=== PATIENT | female | born 1985 | race African-American/Black ===

== ENCOUNTER 2019-12-24 14:49 | Emergency (ER) | payer BC, MEDICAID, OTHER ==
--- NOTE | 2019-12-24 15:12 | ER Document Report ---
ED Medical Screen (RME) - General Chief Complaint: Accidental Overdose Stated Complaint: TOOK TOO MUCH INSULIN/REACTION Time Seen by Provider: 12/24/19 15:00 Primary Care Provider: HARISH THAPA [Primary Care Provider] - Follow up as needed - [facility] Notes: 12/24/19 15:09 34-year-old female who is a type 2 insulin-dependent diabetic as well as a history of hypertension presents emergency room for evaluation after she accidentally gave herself 9 units of long-acting insulin and started giving herself 45 units of long-acting insulin around 1330 today while she was getting ready, she meant to take her short acting insulin. Reports now she is feeling shaky and sweaty nauseous, no vomiting. Her blood sugar currently is 303. States her blood sugars normally 160, her last A1c was 9. Denies any chest diana n, shortness of breath, lightheadedness, blurred vision double vision loss of vision, headache. Last menstrual cycle was December 17, 2019. I have greeted and performed a rapid initial assessment of this patient. A comprehensive ED assessment and evaluation of the patient, analysis of test results and completion of the medical decision making process will be conducted by additional ED providers. PHYSICAL EXAMINATION: GENERAL: Well-appearing, morbidly obese and in no acute distress. HEAD: Atraumatic, normocephalic. EYES: Pupils equal round extraocular movements intact, conjunctiva are normal. NECK: Normal range of motion CV: s1, s2 regular LUNGS: No respiratory distress Musculoskeletal: Normal range of motion NEUROLOGICAL: Normal speech, normal gait. SKIN: Warm, Dry, normal turgor, no rashes or lesions noted. - Related Data Allergies/Adverse Reactions: No Known Allergies Allergy (Unverified 12/24/19 15:05) Home Medications: hctz, metformin, rosuvastatin, meloxicam, janumet, novolog, toujeo Course - Laboratory Laboratory results interpreted by me: 12/24/19 14:58 POC Glucose 303 H Doctor's Discharge - Discharge Referrals: HARISH THAPA [Primary Care Provider] - Follow up as needed
[2019-12-24 15:44] LABS: ABSOLUTE BASOPHILS # (AUTO) 0.1 10^3/uL (0.0-0.2); ABSOLUTE EOSINOPHILS # (AUTO) 0.2 10^3/uL (0.0-0.6); ABSOLUTE LYMPHOCYTES (AUTO) 2.3 10^3/uL (0.5-4.7); ABSOLUTE MONOCYTES (AUTO) 0.5 10^3/uL (0.1-1.4); ABSOLUTE NEUT (AUTO) 4.8 10^3/uL (1.7-8.2); BASOPHILS % (AUTO) 1.3 % (0-2); EOSINOPHILS % (AUTO) 2.3 % (0-6); HEMATOCRIT 39.3 % (36.0-47.0); HEMOGLOBIN 12.2 g/dL (12.0-15.5); LYMPHOCYTES % (AUTO) 29.3 % (13-45); MEAN CORPUSCULAR HEMOGLOBIN 21.9 pg (27.0-33.4); MEAN CORPUSCULAR HGB CONC 31.1 g/dL (32.0-36.0); MEAN CORPUSCULAR VOLUME 70 fl (80-97); MONOCYTES % (AUTO) 6.2 % (3-13); PLATELET COUNT 313 10^3/uL (150-450); RED BLOOD COUNT 5.58 10^6/uL (3.72-5.28); RED CELL DISTRIBUTION WIDTH 19.6 % (11.5-14.0); SEGMENTED NEUTROPHILS % (AUTO) 60.9 % (42-78); TOTAL CELLS COUNTED % (AUTO) 100 %; WHITE BLOOD COUNT 7.8 10^3/uL (4.0-10.5)
[2019-12-24 15:53] LABS: APPEARANCE,URINE SLIGHTLY-CLOUDY; BILIRUBIN,URINE NEGATIVE (NEGATIVE); COLOR,URINE YELLOW; GLUCOSE, URINE >=500 mg/dL (NEGATIVE); KETONES,URINE NEGATIVE (NEGATIVE); LEUKOCYTE ESTERASE,URINE NEGATIVE (NEGATIVE); NITRITE,URINE NEGATIVE (NEGATIVE); PROTEIN,URINE 30 mg/dL (NEGATIVE); UROBILINOGEN,URINE NEGATIVE mg/dL (<2.0)
[2019-12-24 16:02] LABS: ALBUMIN 3.7 g/dL (3.5-5.0); ALKALINE PHOSPHATASE 121 U/L (38-126); ANION GAP 11 (5-19); ASPARTATE AMINO TRANSFERASE 120 U/L (14-36); BILIRUBIN,DIRECT 0.3 mg/dL (0.0-0.4); BILIRUBIN,TOTAL 0.5 mg/dL (0.2-1.3); BLOOD UREA NITROGEN 12 mg/dL (7-20); CALCIUM 9.5 mg/dL (8.4-10.2); CARBON DIOXIDE 29 mmol/L (22-30); CHLORIDE 94 mmol/L (98-107); GLUCOSE 313 mg/dL (75-110); TOTAL PROTEIN 7.3 g/dL (6.3-8.2)
--- NOTE | 2019-12-24 16:47 | ER Document Report ---
ED General - General Mode of Arrival: Ambulatory Information source: Patient - Related Data Home Medications: hctz, metformin, rosuvastatin, meloxicam, janumet, novolog, toujeo <PAUL TOWNSEND - Last Filed: 12/24/19 18:35> <VALE NEVILLE - Last Filed: 12/24/19 21:01> - General Chief Complaint: Accidental Overdose Stated Complaint: TOOK TOO MUCH INSULIN/REACTION Time Seen by Provider: 12/24/19 15:00 Primary Care Provider: HARISH THAPA [NO LOCAL MD] - Follow up as needed Notes: 34-year-old female patient presenting to the emergency department after an accidental insulin overdose. Patient reports she usually takes 45 units of Lantus in the morning and also takes sliding scale insulin with meals. She states she took her 45 units of Lantus this morning as per her usual routine. She then took another dose of 45 units with her lunch as she missed took it for her short acting insulin. Patient reports this occurred at approximately 130 this afternoon. She states she immediately felt jittery, diaphoretic and had nausea. She states she ate some crackers and came to the emergency department. Currently she reports her symptoms are improved. Her glucose at the time of arrival was in the low 300s. (PAUL TOWNSEND) - Related Data Allergies/Adverse Reactions: No Known Allergies Allergy (Unverified 12/24/19 15:05) Past Medical History - General Information source: Patient - Social History Smoking Status: Never Smoker Family History: DM - Past Medical History Cardiac Medical History: Reports: Hx Hypertension Endocrine Medical History: Reports: Hx Diabetes Mellitus Type 2 Past Surgical History: Reports: Hx Section <PAUL TOWNSEND - Last Filed: 12/24/19 18:35> Review of Systems - Review of Systems Constitutional: See HPI EENT: No symptoms reported Cardiovascular: See HPI Gastrointestinal: See HPI -: Yes All other systems reviewed and negative <PAUL TOWNSEND - Last Filed: 12/24/19 18:35> Physical Exam <PAUL TOWNSEND - Last Filed: 12/24/19 18:35> - Vital signs Vitals: Temp Pulse Resp BP Pulse Ox 98.3 F 124 H 22 H 145/108 H 98 12/24/19 15:15 12/24/19 15:15 12/24/19 15:15 12/24/19 15:15 12/24/19 15:15 - Notes Notes: PHYSICAL EXAMINATION: GENERAL: Well-appearing, well-nourished morbidly obese female in no acute distress. HEAD: Atraumatic, normocephalic. EYES: Pupils equal round and reactive to light, extraocular movements intact, conjunctiva are normal. ENT: Nares patent, oropharynx clear without exudates. Moist mucous membranes. NECK: Normal range of motion, supple without lymphadenopathy LUNGS: Breath sounds clear to auscultation bilaterally and equal. No wheezes rales or rhonchi. HEART: Regular rate and rhythm without murmurs ABDOMEN: Soft, nontender, large round, nondistended abdomen. No guarding, no rebound. No masses appreciated. Female : deferred Musculoskeletal: Normal range of motion, no pitting or edema. No cyanosis. NEUROLOGICAL: Cranial nerves grossly intact. Normal speech, normal gait. Normal sensory, motor exams PSYCH: Normal mood, normal affect. SKIN: Warm, Dry, normal turgor, no rashes or lesions noted. (PAUL TOWNSEND) Course - Laboratory Result Diagrams: 12/24/19 15:16 12/24/19 15:16 <PAUL TOWNSEND - Last Filed: 12/24/19 18:35> - Laboratory Result Diagrams: 12/24/19 15:16 12/24/19 15:16 <VALE NEVILLE - Last Filed: 12/24/19 21:01> - Re-evaluation Re-evalutation: Patient is alert and oriented at time of arrival. She states she feels improved. She took 45 units of insulin this morning when she woke up and then took another 45 units at 130 on accident as she thought she was taking her short-term insulin. She has not had any episodes of hypoglycemia here in the emergency department as of this time. We are going to keep her for a total of 12 hours from the time of injection of the second dose of Lantus to ensure that she does not have any rebound hypoglycemia. Patient is in agreement with this plan. She has been given a meal tray for dinner. We are checking her Accu-Chek hourly and will continue to do so until it is safe to discharge her home. (PAUL TOWNSEND) 12/24/19 21:00 Patient has had repeat blood sugars that have not had concerning downtrending, she has eaten a meal here tonight, recommendation is to monitor until approximately 1 AM tonight because of the duration of Lantus, however on evaluation patient is stating that she would much prefer to go home at this time. She states she is staying with multiple family members, she states she they will be able to check her blood sugar hourly until the recommended time, she states that she understands return precautions. I did discuss with Dr. Sosa. Patient was discharged with return precautions and we discussed the instructions in detail. Patient states appreciation and agreement. Stable and well-appearing at time of discharge. (VALE NEVILLE) - Vital Signs Vital signs: Temp Pulse Resp BP Pulse Ox 98.3 F 124 H 22 H 145/108 H 98 12/24/19 15:15 12/24/19 15:15 12/24/19 15:15 12/24/19 15:15 12/24/19 15:15 - Laboratory Laboratory results interpreted by me: 12/24/19 12/24/19 12/24/19 14:58 15:16 15:16 RBC 5.58 H MCV 70 L MCH 21.9 L MCHC 31.1 L RDW 19.6 H Sodium 134.0 L Chloride 94 L Glucose 313 H POC Glucose 303 H AST 120 H ALT 146 H Urine Protein Urine Glucose (UA) Urine Blood 12/24/19 12/24/19 12/24/19 15:16 16:46 18:15 RBC MCV MCH MCHC RDW Sodium Chloride Glucose POC Glucose 292 H 305 H AST ALT Urine Protein 30 H Urine Glucose (UA) >=500 H Urine Blood LARGE H 12/24/19 20:45 RBC MCV MCH MCHC RDW Sodium Chloride Glucose POC Glucose 280 H AST ALT Urine Protein Urine Glucose (UA) Urine Blood Discharge <PAUL TOWNSEND - Last Filed: 12/24/19 18:35> <VALE NEVILLE - Last Filed: 12/24/19 21:01> - Discharge Clinical Impression: Insulin dependent diabetes mellitus Accidental overdose Qualifiers: Encounter type: initial encounter Qualified Code(s): T50.901A - Poisoning by unspecified drugs, medicaments and biological substances, accidental (unintentional), initial encounter Condition: Stable Disposition: HOME, SELF-CARE Additional Instructions: Your evaluation tonight is reassuring, you have chosen to go home at this point, the recommendation is that you do not be alone tonight and that you check your blood sugar hourly until 1 AM. Tomorrow you can resume your normal medication doses. Follow-up with primary care. Return immediately for any concerning developments including low blood sugar, sweating, dizziness, passing out, or any other concerning or worsening symptoms.
[2019-12-24 21:08] VITALS: BP 147/101
== END 2019-12-24 21:08 | disposition home or self-care (01) ==
LOC: ER 14:49
DX: T38.3X1A Poisoning by insulin and oral hypoglycemic [antidiabetic] drugs, accidental (unintentional), initial encounter (principal); R11.0 Nausea; R61 Generalized hyperhidrosis; E11.9 Type 2 diabetes mellitus without complications; I10 Essential (primary) hypertension; Z79.1 Long term (current) use of non-steroidal anti-inflammatories (NSAID); Z79.899 Other long term (current) drug therapy
CPT/HCPCS: 36415; 80053; 81001; 82962; 85025; 99283